=== PATIENT | male | born 1995 | race Caucasian/White ===

== ENCOUNTER 2016-07-16 22:28 | Emergency (ER) | payer SELFPAY ==
[~2016-07-16 22:28] MED LIST: CHLO25CA PO
[2016-07-16 22:30] VITALS: BP 147/92; PULSE 104; RESP 18; TEMP 98.4; O2SAT 99
[2016-07-16] MEDS ORDERED: INVE3TAB2 PO (22:50)
[2016-07-16] MEDS ORDERED: TEGR200T PO (22:50)
[2016-07-16] MEDS ORDERED: REME30TA PO (22:50)
== END 2016-07-16 22:30 | disposition left against medical advice (07) ==
LOC: NED 22:28
DX: R55 Syncope and collapse (principal)
CPT/HCPCS: 99281

== ENCOUNTER 2017-04-13 00:33 | Emergency (ER) | payer OTHER ==
[~2017-04-13] VITALS: Ht 175.3 cm; Wt 85.0 kg
[~2017-04-13 00:33] MED LIST changes: -CHLO25CA PO; +INVE3TAB2 PO; +REME30TA PO; +TEGR200T PO
[2017-04-13 00:34] VITALS: BP 145/97; PULSE 84; RESP 16; TEMP 98.5; O2SAT 99
[2017-04-13] MEDS ORDERED: VIST50CA PO (01:26)
[2017-04-13] MEDS ORDERED: LEVE500 PO (01:26)
[2017-04-13] MEDS ORDERED: ZIPR20 PO ×2 (01:26→18:58)
[2017-04-13] MEDS ORDERED: GABA800T PO (01:26)
[2017-04-13 01:28] VITALS: BP 136/67; PULSE 75; RESP 17; TEMP 98.4; O2SAT 98
--- NOTE | 2017-04-13 01:36 | PD ---
HPI Chief Complaint: Psychiatric Symptoms Time Seen by Provider: 01:27 Travel History International Travel<30 days: No Contact w/Intl Traveler<30days: No Traveled to known affect area: No History of Present Illness HPI 21-year-old male presents to the emergency department voluntarily for psychiatric evaluation. Patient states he had a recent intentional overdose recently. He was seen and evaluated at [facility], medically cleared, and then went to [facility]. He states that he was discharged from [facility] and now he has no vertigo. He states that he is still depressed and having suicidal thoughts. Plan is to overdose again. Denies any other acute medical needs at this time. [facility] Past Medical History Heart Rhythm Problems: Yes (PALPITATIONS) Diminished Hearing: No Schizophrenia: Yes (SCHIZOAFFECTIVE D/O) Seizures: Yes (LAST SEIZURE DEC, 2017) Past Surgical History Tonsillectomy: Yes Social History Alcohol Use: No Tobacco Use: Yes (PPD) Substance Use: Yes Allergies-Medications (Allergen,Severity, Reaction): Coded Allergies: Sulfa (Sulfonamide Antibiotics) (Unverified Allergy, Severe, Hives, ) cefdinir (Unverified Allergy, Severe, Hives, 04/13/17) cephalexin (Unverified Allergy, Severe, Hives, 04/13/17) levofloxacin (Verified Allergy, Unknown, Rash, 04/13/17) Reported Meds & Prescriptions Reported Meds & Active Scripts Active Reported Keppra (Levetiracetam) 500 Mg Tab 500 Mg PO BID Gabapentin 800 Mg Tab 800 Mg PO TID Vistaril (Hydroxyzine Pamoate) 50 Mg Cap 50 Mg PO TID Geodon (Ziprasidone) 20 Mg Cap 20 Mg PO BID Review of Systems Except as stated in HPI: all other systems reviewed are Neg Physical Exam Narrative GENERAL: Well-nourished, well-developed male patient in no acute distress. SKIN: Focused skin assessment warm/dry. HEAD: Normocephalic. EYES: No scleral icterus. No injection or drainage. NECK: Supple, trachea midline. No JVD or lymphadenopathy. CARDIOVASCULAR: Regular rate and rhythm without murmurs, gallops, or rubs. RESPIRATORY: Breath sounds equal bilaterally. No accessory muscle use. GASTROINTESTINAL: Abdomen soft, non-tender, nondistended. MUSCULOSKELETAL: No cyanosis, or edema. BACK: Nontender without obvious deformity. No CVA tenderness. Data Data Last Documented VS Vital Signs Date Time Temp Pulse Resp B/P (MAP) Pulse Ox O2 Delivery O2 Flow Rate FiO2 04/13/17 01:28 98.4 75 17 136/67 (90) 98 Room Air Orders Orders Complete Blood Count With Diff (04/13/17 01:27) Basic Metabolic Panel (Bmp) (04/13/17 01:27) Psych Screen (04/13/17 01:27) Drug Screen, Random Urine (04/13/17 01:27) Alcohol (Ethanol) (04/13/17 01:27) Labs Laboratory Tests Test 04/13/17 01:30 White Blood Count 11.6 TH/MM3 Red Blood Count 5.36 MIL/MM3 Hemoglobin 16.9 GM/DL Hematocrit 49.1 % Mean Corpuscular Volume 91.5 FL Mean Corpuscular Hemoglobin 31.5 PG Mean Corpuscular Hemoglobin Concent 34.4 % Red Cell Distribution Width 12.5 % Platelet Count 263 TH/MM3 Mean Platelet Volume 7.6 FL Neutrophils (%) (Auto) 58.5 % Lymphocytes (%) (Auto) 29.5 % Monocytes (%) (Auto) 9.9 % Eosinophils (%) (Auto) 1.5 % Basophils (%) (Auto) 0.6 % Neutrophils # (Auto) 6.8 TH/MM3 Lymphocytes # (Auto) 3.4 TH/MM3 Monocytes # (Auto) 1.1 TH/MM3 Eosinophils # (Auto) 0.2 TH/MM3 Basophils # (Auto) 0.1 TH/MM3 CBC Comment DIFF FINAL Differential Comment Blood Urea Nitrogen 10 MG/DL Creatinine 0.64 MG/DL Random Glucose 91 MG/DL Calcium Level 8.7 MG/DL Sodium Level 143 MEQ/L Potassium Level 3.6 MEQ/L Chloride Level 109 MEQ/L Carbon Dioxide Level 27.3 MEQ/L Anion Gap 7 MEQ/L Estimat Glomerular Filtration Rate 155 ML/MIN Urine Opiates Screen NEG Urine Barbiturates Screen NEG Urine Amphetamines Screen POS Urine Benzodiazepines Screen NEG Urine Cocaine Screen NEG Urine Cannabinoids Screen NEG Ethyl Alcohol Level LESS THAN 3 MG/DL MDM Medical Decision Making Medical Screen Exam Complete: Yes Emergency Medical Condition: Yes Medical Record Reviewed: Yes Differential Diagnosis Mood disorder versus personality disorder versus adjustment reaction disorder Narrative Course 21-year-old male presents to emergency department voluntarily for psychiatric evaluation. Patient appears without distress. He does report recent intentional overdose with plan to do this again if he does not get help. Lab work is without acute concern. Patient is medically cleared to undergo psychiatric screening for further evaluation and disposition. Mental health screening discussed with the patient. Psychiatric screen ordered. Diagnosis Primary Impression: Adjustment reaction Qualified Codes: F43.23 - Adjustment disorder with mixed anxiety and depressed mood Condition: Stable Allyson Kirby Apr 13, 2017 01:36
[2017-04-13 01:55] LABS: AUTOMATED NEUTROPHIL # 6.8 TH/MM3 (1.8-7.7); BASOPHIL # 0.1 TH/MM3 (0-0.2); BASOPHIL % 0.6 % (0.0-2.0); EOSINOPHIL # 0.2 TH/MM3 (0-0.4); EOSINOPHIL % 1.5 % (0.0-4.0); HEMATOCRIT 49.1 % (39.0-51.0); HEMOGLOBIN 16.9 GM/DL (13.0-17.0); LYMPH % 29.5 % (9.0-44.0); LYMPHOCYTE # 3.4 TH/MM3 (1.0-4.8); MEAN CELL VOLUME 91.5 FL (80.0-100.0); MEAN CORPUSCULAR HEMOGLOBIN 31.5 PG (27.0-34.0); MEAN CORPUSCULAR HGB CONC 34.4 % (32.0-36.0); MEAN PLATELET VOLUME 7.6 FL (7.0-11.0); MONO % 9.9 % (0.0-8.0); MONOCYTE # 1.1 TH/MM3 (0-0.9); NEUT % 58.5 % (16.0-70.0); PLATELET COUNT 263 TH/MM3 (150-450); RED BLOOD COUNT 5.36 MIL/MM3 (4.50-5.90); RED CELL DISTRIBUTION WIDTH 12.5 % (11.6-17.2); WHITE BLOOD COUNT 11.6 TH/MM3 (4.0-11.0)
[2017-04-13 02:56] LABS: BICARBONATE 27.3 MEQ/L (21.0-32.0); BLOOD UREA NITROGEN 10 MG/DL (7-18); CALCIUM 8.7 MG/DL (8.5-10.1); CHLORIDE 109 MEQ/L (98-107); CREATININE 0.64 MG/DL (0.60-1.30); GLOMERULAR FILTRATION RATE 155 ML/MIN (>89); GLUCOSE,RANDOM 91 MG/DL (74-106); SODIUM (NA) 143 MEQ/L (136-145)
--- NOTE | 2017-04-13 19:00 | PD ---
Physical Exam Narrative GENERAL: SKIN: Warm and dry. HEAD: Atraumatic. Normocephalic. EYES: Pupils equal and round. No scleral icterus. No injection or drainage. ENT: No nasal bleeding or discharge. Mucous membranes pink and moist. NECK: Trachea midline. No JVD. CARDIOVASCULAR: Regular rate and rhythm. RESPIRATORY: No accessory muscle use. Clear to auscultation. Breath sounds equal bilaterally. GASTROINTESTINAL: Abdomen soft, non-tender, nondistended. MUSCULOSKELETAL: Extremities without clubbing, cyanosis, or edema. No obvious deformities. NEUROLOGICAL: Awake and alert. No obvious cranial nerve deficits. Motor grossly within normal limits. Five out of 5 muscle strength in the arms and legs. Normal speech. PSYCHIATRIC: Appropriate mood and affect; insight and judgment normal. Data Data Last Documented VS Vital Signs Date Time Temp Pulse Resp B/P (MAP) Pulse Ox O2 Delivery O2 Flow Rate FiO2 04/13/17 01:28 98.4 75 17 136/67 (90) 98 Room Air Orders Orders Complete Blood Count With Diff (04/13/17 01:27) Basic Metabolic Panel (Bmp) (04/13/17 01:27) Psych Screen (04/13/17 01:27) Drug Screen, Random Urine (04/13/17 01:27) Alcohol (Ethanol) (04/13/17 01:27) Diet Regular Basic (04/13/17 Breakfast) Diet Regular Basic (04/13/17 Lunch) Diet Regular Basic (04/13/17 Dinner) Labs Laboratory Tests Test 04/13/17 01:30 White Blood Count 11.6 TH/MM3 Red Blood Count 5.36 MIL/MM3 Hemoglobin 16.9 GM/DL Hematocrit 49.1 % Mean Corpuscular Volume 91.5 FL Mean Corpuscular Hemoglobin 31.5 PG Mean Corpuscular Hemoglobin Concent 34.4 % Red Cell Distribution Width 12.5 % Platelet Count 263 TH/MM3 Mean Platelet Volume 7.6 FL Neutrophils (%) (Auto) 58.5 % Lymphocytes (%) (Auto) 29.5 % Monocytes (%) (Auto) 9.9 % Eosinophils (%) (Auto) 1.5 % Basophils (%) (Auto) 0.6 % Neutrophils # (Auto) 6.8 TH/MM3 Lymphocytes # (Auto) 3.4 TH/MM3 Monocytes # (Auto) 1.1 TH/MM3 Eosinophils # (Auto) 0.2 TH/MM3 Basophils # (Auto) 0.1 TH/MM3 CBC Comment DIFF FINAL Differential Comment Blood Urea Nitrogen 10 MG/DL Creatinine 0.64 MG/DL Random Glucose 91 MG/DL Calcium Level 8.7 MG/DL Sodium Level 143 MEQ/L Potassium Level 3.6 MEQ/L Chloride Level 109 MEQ/L Carbon Dioxide Level 27.3 MEQ/L Anion Gap 7 MEQ/L Estimat Glomerular Filtration Rate 155 ML/MIN Urine Opiates Screen NEG Urine Barbiturates Screen NEG Urine Amphetamines Screen POS Urine Benzodiazepines Screen NEG Urine Cocaine Screen NEG Urine Cannabinoids Screen NEG Ethyl Alcohol Level LESS THAN 3 MG/DL MDM Medical Record Reviewed: Yes Supervised Visit with TERESE: Yes Narrative Course PATIENT STATES THAT HE HAS ARRANGED FOLLOW UP WITH [facility] TO FILL THE REST OF HIS PSYCH MEDICATIONS AND HAS RESIDENCE AT A [address]. PT DENIES ACTIVE SI/HI. PATIENT VERBALLY AGREES TO A SAFETY CONTRACT. PATIENT STATES HE IS MOTIVATED TO GET BACK ON TRACK. Diagnosis Primary Impression: Adjustment reaction Qualified Codes: F43.23 - Adjustment disorder with mixed anxiety and depressed mood Patient Instructions: General Instructions Scripts Ziprasidone (Geodon) 20 Mg Cap 20 MG PO Q24HR for 5 Days, #5 CAP 0 Refills Prov: Michele Damon MD 04/13/17 Disposition: 01 DISCHARGE HOME Condition: Stable Michele Damon MD Apr 13, 2017 19:00
== END 2017-04-13 20:00 | disposition home or self-care (01) ==
LOC: NEPD 00:33 → NEPB 20:00
DX: F43.20 Adjustment disorder, unspecified (principal); F25.9 Schizoaffective disorder, unspecified; R56.9 Unspecified convulsions; F17.200 Nicotine dependence, unspecified, uncomplicated; Z79.899 Other long term (current) drug therapy; Z88.2 Allergy status to sulfonamides; Z88.8 Allergy status to other drugs, medicaments and biological substances
CPT/HCPCS: 80048; 80307; 85025; 99285

== ENCOUNTER 2017-08-28 13:41 | Emergency (ER) | payer SELFPAY ==
[~2017-08-28] VITALS: Ht 175.3 cm; Wt 86.0 kg
[~2017-08-28 13:41] MED LIST changes: +GABA800T PO; -INVE3TAB2 PO; +LEVE500 PO; -REME30TA PO; -TEGR200T PO; +VIST50CA PO; +ZIPR20 PO
[2017-08-28 14:08] VITALS: BP 156/99; PULSE 153; RESP 18; TEMP 99.3; O2SAT 98
[2017-08-28] MEDS ORDERED: SODIUM CHLORIDE 0.9% FLUSH 10 ML FLUSH IVF PRN (14:30)
[2017-08-28] MEDS ORDERED: SODIUM CHLOR 0.9% 1000 ML INJ 1,000 ML IV ONE ×3 (14:30→17:00)
--- NOTE | 2017-08-28 14:31 | PD ---
HPI Chief Complaint: Allergic/Adverse Reaction Time Seen by Provider: 14:17 Travel History International Travel<30 days: No Contact w/Intl Traveler<30days: No Traveled to known affect area: No History of Present Illness HPI Patient comes to the emergency department complaining of rapid heart rate feeling as it was pounding out of his chest that he awoke with today at an unknown time. 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 He states that he woke up in the yard where he was partying sometime shortly prior to arrival when he began having symptoms. Patient thinks he may have ingested something else besides heroin but is uncertain. Patient reports trying to drink some fluid prior to the emergency department with minimal to no improvement of the symptoms. Denies anything making it worse. Patient reports having excessive thirst currently. Denies any family history of sudden or heart disease before age 30. PFSH Past Medical History Heart Rhythm Problems: Yes (PALPITATIONS) Diminished Hearing: No Schizophrenia: Yes (SCHIZOAFFECTIVE D/O) Seizures: Yes (LAST SEIZURE DEC, 2017) Past Surgical History Tonsillectomy: Yes Social History Alcohol Use: Yes Tobacco Use: Yes (PPD) Substance Use: Yes Allergies-Medications (Allergen,Severity, Reaction): Coded Allergies: Sulfa (Sulfonamide Antibiotics) (Unverified Allergy, Severe, Hives, ) cefdinir (Unverified Allergy, Severe, Hives, 08/28/17) cephalexin (Unverified Allergy, Severe, Hives, 08/28/17) levofloxacin (Verified Allergy, Unknown, Rash, 08/28/17) Reported Meds & Prescriptions Reported Meds & Active Scripts Active Reported Buspirone (Buspirone HCl) 15 Mg Tab 15 Mg PO QID Keppra (Levetiracetam) 500 Mg Tab 500 Mg PO BID Geodon (Ziprasidone) 20 Mg Cap 20 Mg PO BID Review of Systems Except as stated in HPI: all other systems reviewed are Neg Physical Exam Narrative GENERAL: Well-developed, well nourished, in no acute distress, and non-ill appearing. SKIN: Focused skin assessment warm and dry. HEAD: Atraumatic. Normocephalic. EYES: Pupils equal and round. EOMI. No scleral icterus. No injection or drainage. ENT: No nasal bleeding or discharge. Mucous membranes pink and moist. NECK: Trachea midline. No JVD. Supple. No nuclear rigidity. CARDIOVASCULAR: Tachycardia rate and rhythm. No murmur appreciated. RESPIRATORY: No accessory muscle use. No respiratory distress. Clear to auscultation. Breath sounds equal bilaterally. GASTROINTESTINAL: Abdomen soft, non-tender, nondistended, and no guarding. Hepatic and splenic margins not palpable. Normal bowel sounds x4. No pulsatile mass. MUSCULOSKELETAL: No obvious deformities. No clubbing. No cyanosis. No edema. Full range of motion. NEUROLOGICAL: Awake and alert. No obvious cranial nerve deficits. Motor grossly within normal limits. Normal speech. PSYCHIATRIC: Appropriate mood and affect; insight and judgment normal. Data Data Last Documented VS Vital Signs Date Time Temp Pulse Resp B/P (MAP) Pulse Ox O2 Delivery O2 Flow Rate FiO2 08/28/17 19:09 08/28/17 18:00 106 12 97 Room Air 08/28/17 14:08 99.3 Orders Orders Electrocardiogram (08/28/17 14:25) Basic Metabolic Panel (Bmp) (08/28/17 14:25) Ckmb (Isoenzyme) Profile (08/28/17 14:25) Complete Blood Count With Diff (08/28/17 14:25) Magnesium (Mg) (08/28/17 14:25) Prothrombin Time / Inr (Pt) (08/28/17 14:25) Act Partial Throm Time (Ptt) (08/28/17 14:25) Troponin I (08/28/17 14:25) Ecg Monitoring (08/28/17 14:25) Bilateral Bp Monitoring (08/28/17 14:25) Iv Access Insert/Monitor (08/28/17 14:25) Oximetry (08/28/17 14:25) Oxygen Administration (08/28/17 14:25) Sodium Chloride 0.9% Flush (Ns Flush) (08/28/17 14:30) Chest, Pa & Lat (08/28/17 14:25) Drug Screen, Random Urine (08/28/17 14:25) Sodium Chlor 0.9% 1000 Ml Inj (Ns 1000 M (08/28/17 14:30) Sodium Chlor 0.9% 1000 Ml Inj (Ns 1000 M (08/28/17 15:00) Salicylates (Aspirin) (08/28/17 14:47) Tylenol (Acetaminophen) (08/28/17 14:47) Electrocardiogram (08/28/17 ) Alcohol (Ethanol) (08/28/17 14:35) CKMB (08/28/17 14:35) CKMB% (08/28/17 14:35) Sodium Chlor 0.9% 1000 Ml Inj (Ns 1000 M (08/28/17 17:00) Ed Discharge Order (08/28/17 18:10) Labs Laboratory Tests Test 08/28/17 14:35 08/28/17 16:55 White Blood Count 13.8 TH/MM3 Red Blood Count 5.47 MIL/MM3 Hemoglobin 17.6 GM/DL Hematocrit 51.2 % Mean Corpuscular Volume 93.6 FL Mean Corpuscular Hemoglobin 32.3 PG Mean Corpuscular Hemoglobin Concent 34.5 % Red Cell Distribution Width 13.2 % Platelet Count 288 TH/MM3 Mean Platelet Volume 7.8 FL Neutrophils (%) (Auto) 74.7 % Lymphocytes (%) (Auto) 13.4 % Monocytes (%) (Auto) 11.6 % Eosinophils (%) (Auto) 0.0 % Basophils (%) (Auto) 0.3 % Neutrophils # (Auto) 10.3 TH/MM3 Lymphocytes # (Auto) 1.8 TH/MM3 Monocytes # (Auto) 1.6 TH/MM3 Eosinophils # (Auto) 0.0 TH/MM3 Basophils # (Auto) 0.0 TH/MM3 CBC Comment DIFF FINAL Differential Comment Prothrombin Time 10.7 SEC Prothromb Time International Ratio 1.1 RATIO Activated Partial Thromboplast Time 27.8 SEC Blood Urea Nitrogen 12 MG/DL Creatinine 0.93 MG/DL Random Glucose 107 MG/DL Calcium Level 9.4 MG/DL Magnesium Level 1.9 MG/DL Sodium Level 145 MEQ/L Potassium Level 3.9 MEQ/L Chloride Level 107 MEQ/L Carbon Dioxide Level 25.6 MEQ/L Anion Gap 12 MEQ/L Estimat Glomerular Filtration Rate 100 ML/MIN Total Creatine Kinase 128 U/L Creatine Kinase MB 1.4 NG/ML Troponin I LESS THAN 0.02 NG/ML Salicylates Level LESS THAN 1.7 MG/DL Acetaminophen Level LESS THAN 2.0 MCG/ML Ethyl Alcohol Level LESS THAN 3 MG/DL Urine Opiates Screen NEG Urine Barbiturates Screen NEG Urine Amphetamines Screen POS Urine Benzodiazepines Screen NEG Urine Cocaine Screen NEG Urine Cannabinoids Screen NEG MDM Medical Decision Making Medical Screen Exam Complete: Yes Emergency Medical Condition: Yes Interpretation(s) EKG reviewed by Dr. Roberts shows sinus tachycardia with ventricular rate of 154. No STEMI. Repeat EKG reviewed by Dr. Roberts sinus tachycardia with a ventricular rate of 108. No STEMI. Differential Diagnosis Dehydration, arrhythmia, substance-induced tachycardia, substance abuse, metabolic disturbance Narrative Course Patient in no obvious distress upon re-evaluation. All pertinent laboratory/ Radiology result(s) discussed with patient. Discussed patient with Dr. Roberts , who saw and evaluated the patient and is in agreement with plan of care disposition. Any questions/concerns in reference to patient diagnosis/ condition discussed and clarified prior to patient's discharge. Reinforced sheer importance of close follow up with patient's primary physician or primary care clinic and/or detox center. Instructed patient to return to ED immediately , if symptoms return/worsen. Patient showed understanding of above instructions. Further instructions and recommendations were detailed in discharge paperwork. Patient ambulated without difficulty out of ED at discharge. Diagnosis Primary Impression: Substance abuse Referrals: [facility] [address] [facility] Patient Instructions: General Instructions, Polysubstance Abuse (ED) Additional Instructions: Follow-up with your primary care physician and/or [facility] for detox. Drink plenty of non-caffeinated and nonalcoholic fluids. Return to the emergency department if symptoms get worse. Disposition: 01 DISCHARGE HOME Condition: Stable César Mendoza August 28, 2017 14:31
[2017-08-28 14:40] VITALS: BP 164/98; PULSE 136; RESP 22; O2SAT 99
[2017-08-28] MEDS ORDERED: BUSP15TA PO (14:43)
[2017-08-28 15:21] LABS: AUTOMATED NEUTROPHIL # 10.3 TH/MM3 (1.8-7.7); BASOPHIL % 0.3 % (0.0-2.0); HEMATOCRIT 51.2 % (39.0-51.0); HEMOGLOBIN 17.6 GM/DL (13.0-17.0); LYMPH % 13.4 % (9.0-44.0); LYMPHOCYTE # 1.8 TH/MM3 (1.0-4.8); MEAN CELL VOLUME 93.6 FL (80.0-100.0); MEAN CORPUSCULAR HEMOGLOBIN 32.3 PG (27.0-34.0); MEAN CORPUSCULAR HGB CONC 34.5 % (32.0-36.0); MEAN PLATELET VOLUME 7.8 FL (7.0-11.0); MONO % 11.6 % (0.0-8.0); MONOCYTE # 1.6 TH/MM3 (0-0.9); NEUT % 74.7 % (16.0-70.0); PLATELET COUNT 288 TH/MM3 (150-450); RED BLOOD COUNT 5.47 MIL/MM3 (4.50-5.90); RED CELL DISTRIBUTION WIDTH 13.2 % (11.6-17.2); WHITE BLOOD COUNT 13.8 TH/MM3 (4.0-11.0)
[2017-08-28 15:41] LABS: BICARBONATE 25.6 MEQ/L (21.0-32.0); BLOOD UREA NITROGEN 12 MG/DL (7-18); CALCIUM 9.4 MG/DL (8.5-10.1); CHLORIDE 107 MEQ/L (98-107); CREATININE 0.93 MG/DL (0.60-1.30); GLOMERULAR FILTRATION RATE 100 ML/MIN (>89); GLUCOSE,RANDOM 107 MG/DL (74-106); MAGNESIUM 1.9 MG/DL (1.5-2.5); SODIUM (NA) 145 MEQ/L (136-145); TROPONIN I LESS THAN 0.02 NG/ML (0.02-0.05)
[2017-08-28 15:42] LABS: ACETAMINOPHEN LESS THAN 2.0 MCG/ML (10.0-30.0)
[2017-08-28 15:45] LABS: INTERNATIONAL NORMALIZED RATIO 1.1 RATIO; PROTHROMBIN TIME - PATIENT 10.7 SEC (9.8-11.6)
--- NOTE | 2017-08-28 16:15 | RADRPT ---
EXAM DATE: 08/28/2017 3:43 PM EDT AGE/SEX: 22 years / Male INDICATIONS: Increased heart rate, possible drug reaction CLINICAL DATA: This is the patient's initial encounter. Patient reports that signs and symptoms have been present for 2 days and indicates a pain score of 0/10. MEDICAL/SURGICAL HISTORY: None. None. COMPARISON: No prior Major exams available for comparison. FINDINGS: PA and lateral views of the chest demonstrate the lungs to be symmetrically aerated without evidence of mass, infiltrate or effusion. The cardiomediastinal contours are unremarkable. Osseous structures are intact. CONCLUSION: No acute cardiopulmonary disease. Electronically signed by: Sebastien Alexandra MD 08/28/2017 4:14 PM EDT
--- NOTE | 2017-08-28 17:28 | PD ---
Data Data Last Documented VS Vital Signs Date Time Temp Pulse Resp B/P (MAP) Pulse Ox O2 Delivery O2 Flow Rate FiO2 08/28/17 14:40 136 22 164/98 (120) 99 Room Air 08/28/17 14:08 99.3 Orders Orders Electrocardiogram (08/28/17 14:25) Basic Metabolic Panel (Bmp) (08/28/17 14:25) Ckmb (Isoenzyme) Profile (08/28/17 14:25) Complete Blood Count With Diff (08/28/17 14:25) Magnesium (Mg) (08/28/17 14:25) Prothrombin Time / Inr (Pt) (08/28/17 14:25) Act Partial Throm Time (Ptt) (08/28/17 14:25) Troponin I (08/28/17 14:25) Ecg Monitoring (08/28/17 14:25) Bilateral Bp Monitoring (08/28/17 14:25) Iv Access Insert/Monitor (08/28/17 14:25) Oximetry (08/28/17 14:25) Oxygen Administration (08/28/17 14:25) Sodium Chloride 0.9% Flush (Ns Flush) (08/28/17 14:30) Chest, Pa & Lat (08/28/17 14:25) Drug Screen, Random Urine (08/28/17 14:25) Sodium Chlor 0.9% 1000 Ml Inj (Ns 1000 M (08/28/17 14:30) Sodium Chlor 0.9% 1000 Ml Inj (Ns 1000 M (08/28/17 15:00) Salicylates (Aspirin) (08/28/17 14:47) Tylenol (Acetaminophen) (08/28/17 14:47) Electrocardiogram (08/28/17 ) Alcohol (Ethanol) (08/28/17 14:35) CKMB (08/28/17 14:35) CKMB% (08/28/17 14:35) Sodium Chlor 0.9% 1000 Ml Inj (Ns 1000 M (08/28/17 17:00) Labs Laboratory Tests Test 08/28/17 14:35 08/28/17 16:55 White Blood Count 13.8 TH/MM3 Red Blood Count 5.47 MIL/MM3 Hemoglobin 17.6 GM/DL Hematocrit 51.2 % Mean Corpuscular Volume 93.6 FL Mean Corpuscular Hemoglobin 32.3 PG Mean Corpuscular Hemoglobin Concent 34.5 % Red Cell Distribution Width 13.2 % Platelet Count 288 TH/MM3 Mean Platelet Volume 7.8 FL Neutrophils (%) (Auto) 74.7 % Lymphocytes (%) (Auto) 13.4 % Monocytes (%) (Auto) 11.6 % Eosinophils (%) (Auto) 0.0 % Basophils (%) (Auto) 0.3 % Neutrophils # (Auto) 10.3 TH/MM3 Lymphocytes # (Auto) 1.8 TH/MM3 Monocytes # (Auto) 1.6 TH/MM3 Eosinophils # (Auto) 0.0 TH/MM3 Basophils # (Auto) 0.0 TH/MM3 CBC Comment DIFF FINAL Differential Comment Prothrombin Time 10.7 SEC Prothromb Time International Ratio 1.1 RATIO Activated Partial Thromboplast Time 27.8 SEC Blood Urea Nitrogen 12 MG/DL Creatinine 0.93 MG/DL Random Glucose 107 MG/DL Calcium Level 9.4 MG/DL Magnesium Level 1.9 MG/DL Sodium Level 145 MEQ/L Potassium Level 3.9 MEQ/L Chloride Level 107 MEQ/L Carbon Dioxide Level 25.6 MEQ/L Anion Gap 12 MEQ/L Estimat Glomerular Filtration Rate 100 ML/MIN Total Creatine Kinase 128 U/L Creatine Kinase MB 1.4 NG/ML Troponin I LESS THAN 0.02 NG/ML Salicylates Level LESS THAN 1.7 MG/DL Acetaminophen Level LESS THAN 2.0 MCG/ML Ethyl Alcohol Level LESS THAN 3 MG/DL MDM Supervised Visit with TERESE: Yes Narrative Course I, Dr. Roberts, have reviewed the advance practice practitioner's documentation and am in agreement, met with the patient face to face, made the diagnosis, and the medical decision making was done by me. *My assessment and Findings: This patient had an unintentional overdose. He has relapsed into drug use. He did not feel suicidal intent to harm himself. He initially was quite tachycardic in the 150s. However after IV fluid and resting time and he is now down to about 110 sinus tachycardia. There is no ectopy. Workup is reviewed. He will be discharged in the near future. Yoshi Roberts MD August 28, 2017 17:28
[2017-08-28 18:00] VITALS: BP 145/87; PULSE 106; RESP 12; O2SAT 97
--- NOTE | 2017-08-29 15:00 | EKG ---
Date Performed: 08/28/2017 Time Performed: 15:40:57 PTAGE: 22 years EKG: SINUS TACHYCARDIA VOLTAGE CRITERIA FOR LVH ABNORMAL ECG PREVIOUS TRACING : 08/28/2017 14.30 Since the previous tracing, no significant change noted DOCTOR: Palmer Singh Interpretating Date/Time 08/29/2017 14:56:28
--- NOTE | 2017-08-29 15:00 | EKG ---
Date Performed: 08/28/2017 Time Performed: 14:30:11 PTAGE: 22 years EKG: SINUS TACHYCARDIA, POSSIBLE ATRIAL FLUTTER NONSPECIFIC ST & T-WAVE ABNORMALITY ABNORMAL RHY THM ECG NO PREVIOUS TRACING DOCTOR: Palmer Singh Interpretating Date/Time 09/03/2017 07:07:26
== END 2017-08-28 19:18 | disposition home or self-care (01) ==
LOC: NEPE 13:41
DX: F19.10 Other psychoactive substance abuse, uncomplicated (principal); R00.0 Tachycardia, unspecified; F17.200 Nicotine dependence, unspecified, uncomplicated; F20.9 Schizophrenia, unspecified; Z79.899 Other long term (current) drug therapy
CPT/HCPCS: 71046; 80048; 80307; 82550; 82552; 83735; 84484; 85025; 85610; 85730; 93005; 96360; 96361; 99285; J7030